=== PATIENT | male | born 1985 | race Caucasian/White ===

== ENCOUNTER 2021-05-26 16:48 | Emergency (ER) | payer OTHER ==
[2021-05-26 17:31] LABS: HEMOGLOBIN 14.5 gm/dl (14.0-17.5); WHITE BLOOD COUNT 8.4 K/UL (4.5-11.0)
[2021-05-26 17:46] LABS: BUN/CREATININE RATIO 11 (0-10)
[2021-05-26] MEDS ORDERED: CEFUROXIME500 MG PO (21:08)
== END 2021-05-26 21:22 | disposition home or self-care (01) ==
LOC: ER1 16:48
PROVIDERS: Preventive Medicine Occupational Medicine
DX: N39.0 Urinary tract infection, site not specified (principal)
CPT/HCPCS: 80053; 81001; 83605; 85025; 85652; 86140; 87086; 96374; 96375; 99284; J0696; J2405; J7030